=== PATIENT | male | born 1990 | race Caucasian/White ===

== ENCOUNTER 2017-01-06 10:00 | Emergency (ER) | payer BC, OTHER ==
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
== END 2017-01-06 11:56 | disposition home or self-care (01) ==
LOC: ED 10:00
DX: S29.9XXA Unspecified injury of thorax, initial encounter (principal); S93.401A Sprain of unspecified ligament of right ankle, initial encounter; V49.40XA Driver injured in collision with unspecified motor vehicles in traffic accident, initial encounter; Y92.410 Unspecified street and highway as the place of occurrence of the external cause; J45.909 Unspecified asthma, uncomplicated; F17.210 Nicotine dependence, cigarettes, uncomplicated